=== PATIENT | male | born 1965 | race American Indian/Alaskan Native ===

== ENCOUNTER 2017-10-21 13:09 | Emergency (ER) | payer OTHER ==
[2017-10-21 14:35] VITALS: BP 148/89
--- NOTE | 2017-10-21 14:52 | Emergency Department Report ---
Chief Complaint: High BP Stated Complaint: HYPERTENSIVE/HEADACHE Time Seen by Provider: 10/21/17 14:48 - HPI History of Present Illness: pt is a 52 y/o aam with hx of HTN, HLD, and DMII on lisinopril 40mg, pravastatin 80mg, and diet controlled DM pt states that he has had increase headache for past 4 weeks seen pcp in [place] and has increased lisinopril from 20 ot 40 mg po daily po in same time frame pt describes headaches as frontal pressure no fever no chills but intermittent dizziness, headache at this time is 3/10 aching headache is constant and not relieved by otc pain medication , there is no cp no sob no activity intolerance at this time. - Exam Vital Signs: Vital Signs 10/21/17 14:33 Temperature 98.6 F Pulse Rate 79 Respiratory 16 Rate Blood Pressure 148/89 O2 Sat by Pulse 97 Oximetry MSE screening note: Focused history and physical exam performed. Due to findings the following was ordered: ED Disposition for MSE Condition: Stable
[2017-10-21] MEDS ORDERED: DECADRON IM ONE (14:56)
[2017-10-21] MEDS ORDERED: TYLENOL PO ONE (14:56)
[2017-10-21] MEDS ORDERED: REGLAN PO ONE (14:58)
[2017-10-21] MEDS ORDERED: BENADRYL PO ONE (14:58)
--- NOTE | 2017-10-21 15:26 | XRay Report ---
PA and lateral chest: Dizziness. There is a circumscribed noncalcified small nodule in the left upper lung region. This is only identified in the frontal view. The lungs otherwise appear clear. The heart is normal in size and there is no vascular congestion. Healed fracture of the mid right clavicle. No prior study for comparison. Impression: Probably benign left nodule. If there are no prior exams for comparison suggest repeat chest exam in 3-4 months to confirm stability.
--- NOTE | 2017-10-21 15:43 | Cat Scan Report ---
CRANIAL CT SCAN: Headache. Serial contiguous axial images were obtained through the cranium. Intravenous contrast material was not administered. The ventricles are normal in size and appearance. There is no mass effect or midline shift. No areas of abnormally increased or decreased attenuation are seen. No mass lesion is seen. The mastoid air cells and visualized portions of the sinuses are normal. IMPRESSION: Cranial CT scan within normal limits.
[2017-10-21 17:19] LABS: Basophils % (Auto) 1.4 % (0.0-1.8); Hematocrit 39.1 % (35.5-45.6); Hemoglobin 12.7 gm/dl (11.8-15.2); Mean Corpuscular HGB Conc 32 % (32-34); Mean Corpuscular Hemoglobin 28 pg (28-32); Mean Corpuscular Volume 87 fl (84-94); Platelet Count 234 K/mm3 (140-440); Red Blood Count 4.48 M/mm3 (3.65-5.03); Red Cell Distribution Width 15.1 % (13.2-15.2); White Blood Count 8.1 K/mm3 (4.5-11.0)
[2017-10-21 17:21] LABS: Alanine Aminotransferase 36 units/L (7-56); Albumin 4.1 g/dL (3.9-5); Albumin/Globulin Ratio 1.4 %; Alkaline Phosphatase 70 units/L (35-129); Anion Gap 15 mmol/L; BUN/Creatinine Ratio 13; Blood Urea Nitrogen 16 mg/dL (9-20); Calcium 9.1 mg/dL (8.4-10.2); Carbon Dioxide 29 mmol/L (22-30); Glucose 99 mg/dL (75-100); Potassium 4.2 mmol/L (3.6-5.0); Sodium 141 mmol/L (137-145); Total Protein 7.1 g/dL (6.3-8.2)
[2017-10-21 17:32] LABS: INR 0.94 (0.87-1.13)
[2017-10-21 17:40] LABS: Partial Thromboplastin Time 30.7 Sec. (24.2-36.6)
== END 2017-10-21 15:45 | disposition left against medical advice (07) ==
LOC: ED 13:09
DX: Z53.21 Procedure and treatment not carried out due to patient leaving prior to being seen by health care provider (principal)
CPT/HCPCS: 36415; 70450; 71020; 80053; 84484; 85025; 85610; 85730

== ENCOUNTER 2021-04-07 10:21 | Day surgery (SDC) | payer OTHER ==
[2021-04-07] MEDS ORDERED: ASPIRIN EC 325 MG TAB PO ONE (10:43)
[2021-04-07] MEDS ORDERED: SODIUM CHLORIDE 0.9% 500 ML 500 ML IV SCH (11:00)
[2021-04-07 11:38] LABS: Basophils # (Auto) 0.1 K/mm3 (0.0-0.1); Basophils % (Auto) 0.8 % (0.0-1.8); Eosinophils # (Auto) 0.2 K/mm3 (0.0-0.4); Eosinophils % (Auto) 2.8 % (0.0-4.3); Hematocrit 39.6 % (35.5-45.6); Hemoglobin 13.5 gm/dl (11.8-15.2); Lymphocytes # (Auto) 2.1 K/mm3 (1.2-5.4); Lymphocytes % (Auto) 26.5 % (13.4-35.0); Mean Corpuscular HGB Conc 34 % (32-34); Mean Corpuscular Volume 87 fl (84-94); Monocytes # (Auto) 0.6 K/mm3 (0.0-0.8); Platelet Count 229 K/mm3 (140-440); Red Blood Count 4.54 M/mm3 (3.65-5.03); Red Cell Distribution Width 15.1 % (13.2-15.2)
[2021-04-07 11:52] LABS: Partial Thromboplastin Time 32.9 Sec. (24.2-36.6)
[2021-04-07 11:56] LABS: BUN/Creatinine Ratio 13; Blood Urea Nitrogen 13 mg/dL (9-20); Calcium 9.4 mg/dL (8.4-10.2); Hemolysis Index 5
[2021-04-07] MEDS ORDERED: HEPARIN 10,000 UNITS/10 ML VIAL ONE (12:43)
[2021-04-07] MEDS ORDERED: MIDAZOLAM 2 MG/2 ML INJ ONE (12:43)
[2021-04-07] MEDS ORDERED: HEPARIN/NS 5000 UNIT/500ML 1,000 ML IR ONE (12:43)
[2021-04-07] MEDS ORDERED: fentaNYL 100 MCG/2 ML INJ ONE (12:44)
[2021-04-07] MEDS ORDERED: LIDOCAINE (2%) 20 MG/1 ML VIAL 20 ML MDV INFILTRATI ONE (12:44)
[2021-04-07] MEDS ORDERED: NITROGLYCERIN SYRINGE 3 ML ONE (12:44)
[2021-04-07] MEDS ORDERED: VERAPAMIL 5 MG/2 ML INJ ONE (12:44)
[2021-04-07] MEDS ORDERED: traMADol 50 MG TAB PO PRN (13:31)
--- NOTE | 2021-04-07 13:34 | Discharge Summary ---
Short Stay Discharge Plan Activity: advance as tolerated Weight Bearing Status: Full Weight Bearing Diet: low fat, low cholesterol, low salt, diabetic Wound: keep clean and dry Special Instructions: no heavy lifting (3 days) Follow up with: PRIMARY CAREMD [Primary Care Provider] - 7 Days TRUDY BARRIOS MD [Staff Physician] - 7 Days
[2021-04-07] MEDS ORDERED: SODIUM CHLORIDE 0.9% 1000 ML 1,000 ML IV SCH (13:45)
--- NOTE | 2021-04-07 15:35 | Cardiac Catherization Report ---
DATE OF SERVICE: 04/07/2021 CARDIAC CATHETERIZATION REPORT REASON FOR PROCEDURE: Chest pain. PROCEDURES PERFORMED: 1. Left heart catheterization. 2. Selective left and right coronary angiography. 3. Left ventricular angiography. 4. Sedation time start 1253 hours, end 1308 hours. I was present for the entire procedure and supervised the moderate sedation protocol. DESCRIPTION OF PROCEDURE: The patient was prepped and draped in a sterile fashion after informed consent. The right radial catheterization site was prepped and draped after a negative Eric's test. The right radial artery was entered using Seldinger technique followed by placement of a 6-Albanian hydrophilic sheath. Routine radial cocktail was administered via the sheath. Selective left and right coronary angiography was performed using #3.5 left Terri and #4 right Terri. A pigtail catheter was used for left ventricular angiography. Catheters were removed, sheath removed and hemostasis achieved using a TR band. The patient was returned to the post-procedure unit in stable condition. There were no complications. FINDINGS: HEMODYNAMICS: Left ventricular end diastolic pressure was 21, following coronary angiography. Ascending aortic pressure was 158/101. There was no significant pressure gradient on pullback across the aortic valve. CORONARY ANGIOGRAPHY: The left main coronary artery was angiographically normal. The left anterior descending artery contained mild atherosclerosis of its proximal to mid segments. There was up to 20% luminal stenosis of the proximal to mid LAD. The diagonal branches also contain diffuse mild atherosclerosis. The circumflex artery and its obtuse marginal branches contain diffuse mild atherosclerosis. The right coronary artery is a large caliber dominant vessel. There was mild atherosclerosis of the proximal vessel, with up to 10-20% wedge-shaped narrowing of the proximal segment. The vessel was otherwise patent with additional mild atherosclerosis of the mid vessel. There was normal left ventricular systolic function with ejection fraction 55-60%. CONCLUSION: 1. Mild nonobstructive atherosclerosis of the LAD and right coronary arteries. 2. Normal left ventricular systolic function, ejection fraction 60%. RECOMMENDATION: Risk factor modification and medical therapy. TID: [id number] RECEIPT: [id number] CA/KDA
[2021-04-07 16:38] VITALS: BP 148/92
--- NOTE | 2021-04-11 17:30 | Electrocardiograph Report ---
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
== END 2021-04-07 17:00 | disposition home or self-care (01) ==
LOC: CATHLABREC 10:21
PROVIDERS: ATTEND Internal Medicine Cardiovascular Disease
DX: R07.89 Other chest pain (principal); I25.10 Atherosclerotic heart disease of native coronary artery without angina pectoris; E78.00 Pure hypercholesterolemia, unspecified; I10 Essential (primary) hypertension; J45.909 Unspecified asthma, uncomplicated; Z79.899 Other long term (current) drug therapy; Z98.890 Other specified postprocedural states; G47.30 Sleep apnea, unspecified; Z82.49 Family history of ischemic heart disease and other diseases of the circulatory system
CPT/HCPCS: 36415; 80048; 85025; 85610; 85730; 93005; 93458; 99156; C1894; J1644; J2250; J3010; J7040; Q9967